=== PATIENT | male | born 1930 | race Caucasian/White ===

== ENCOUNTER 2019-02-01 09:34 | Emergency (ER) | payer OTHER, MEDICAID ==
[~2019-02-01] VITALS: Ht 170.2 cm; Wt 77.0 kg
[~2019-02-01 09:34] MED LIST: ASPI-1158 PO; GLIPIZIDE PO; LEVO500T2 PO; LISINOPRIL PO; SIMVASTATIN PO; TAMS-11 PO
[2019-02-01 09:52] LABS: EOSINOPHILS % 5.4 % (0.0-5.0); HEMATOCRIT. 36.9 % (42.0-52.0); HEMOGLOBIN. 12.3 g/dL (14.0-18.0); LYMPHOCYTES % 16.5 % (20.0-50.0); MEAN CORPUSCULAR HEMOGLOBIN 30.7 pg (28.0-32.0); MEAN CORPUSCULAR VOLUME 92.6 fL (80.0-94.0); MEAN PLATELET VOLUME 9.5 fl (7.4-10.4); MONOCYTES % 5.8 % (2.0-8.0); NEUTROPHILS % 71.3 % (40.0-76.0); PLATELET 109 x1000/uL (130-400); RED BLOOD CELL COUNT 3.99 mill/uL (4.7-6.1); RED CELL DISTRIBUTION WIDTH 14.4 % (11.6-14.6)
[2019-02-01 09:58] LABS: CHLORIDE 109 mEq/L (98-107)
[2019-02-01] MEDS ORDERED: LEVOFLOXACIN 500MG PREMIX 100 ML IV ONE (10:15)
[2019-02-01] MEDS ORDERED: FUROSEMIDE 20MG/2ML VIAL IVP ONE (10:15)
[2019-02-01 13:06] VITALS: BP 118/58
== END 2019-02-01 13:11 | disposition short-term general hospital (02) ==
LOC: ER 09:34 → CANBEDREQ 14:34
DX: R07.89 Other chest pain (principal); I11.0 Hypertensive heart disease with heart failure; I50.9 Heart failure, unspecified; J18.9 Pneumonia, unspecified organism; E11.9 Type 2 diabetes mellitus without complications; Z98.890 Other specified postprocedural states; Z88.0 Allergy status to penicillin; Z79.899 Other long term (current) drug therapy; Z88.5 Allergy status to narcotic agent; Z79.82 Long term (current) use of aspirin
CPT/HCPCS: 36415; 71045; 80053; 82962; 83605; 83880; 84484; 85025; 87040; 93005; 96365; 96375; 99285; J1940; J1956